=== PATIENT | female | born 1965 | race Caucasian/White ===

== ENCOUNTER 2023-06-28 10:14 | Outpatient (RCR) | payer OTHER, BC, SELFPAY | END 2023-06-28 23:59 | disposition home or self-care (01) | LOC: RPT 10:14 | PROVIDERS: ATTENDING PHYSICIAN Orthopaedic Surgery; FAMILY PHYSICIAN Family Medicine | DX: S76.011D Strain of muscle, fascia and tendon of right hip, subsequent encounter (principal); Z73.6 Limitation of activities due to disability; M25.551 Pain in right hip; R26.89 Other abnormalities of gait and mobility | CPT/HCPCS: 97010; 97110; 97140; 97163 ==

== ENCOUNTER → 2023-07-11 17:53 | Outpatient (REF) | payer BC, SELFPAY | LOC: WDC 17:53 | PROVIDERS: ATTENDING PHYSICIAN Obstetrics & Gynecology; FAMILY PHYSICIAN Family Medicine | DX: Z12.31 Encounter for screening mammogram for malignant neoplasm of breast (principal) | CPT/HCPCS: 77063; 77067 ==

== ENCOUNTER 2023-07-28 11:17 | Outpatient (RCR) | payer OTHER, BC, SELFPAY | END 2023-07-28 23:59 | disposition home or self-care (01) | LOC: RPT 11:17 | PROVIDERS: ATTENDING PHYSICIAN Orthopaedic Surgery; FAMILY PHYSICIAN Family Medicine | DX: S76.011D Strain of muscle, fascia and tendon of right hip, subsequent encounter (principal); Z73.6 Limitation of activities due to disability; M25.551 Pain in right hip; R26.89 Other abnormalities of gait and mobility; X58.XXXD Exposure to other specified factors, subsequent encounter | CPT/HCPCS: 97010; 97110; 97112; 97140; 97530 ==

== ENCOUNTER 2023-08-11 10:19 | Outpatient (RCR) | payer OTHER, BC, SELFPAY | END 2023-08-11 23:59 | disposition home or self-care (01) | LOC: RPT 10:19 | PROVIDERS: ATTENDING PHYSICIAN Orthopaedic Surgery; FAMILY PHYSICIAN Family Medicine | DX: S76.011D Strain of muscle, fascia and tendon of right hip, subsequent encounter (principal); X58.XXXD Exposure to other specified factors, subsequent encounter; Z73.6 Limitation of activities due to disability; M25.551 Pain in right hip; R26.89 Other abnormalities of gait and mobility | CPT/HCPCS: 97010; 97110; 97140; 97530 ==

== ENCOUNTER 2023-09-14 07:42 | Emergency (ER) | payer BC, SELFPAY ==
[2023-09-14 07:45] VITALS: BP 116/73
[2023-09-14 08:05] VITALS: BMI 22.0
--- NOTE | 2023-09-14 08:41 | ED.GENMED ---
History of Present Illness
General
Chief Complaint: Urinary Symptoms
Source: patient
Exam Limitations: none
Time Seen by Provider: 09/14/23 07:56
Travel History
Have you had any contact with someone who has COVID-19?: No
Do you have any symptoms of coronavirus? Fever > 100 degrees, chills, cough, shortness of breath, sore throat, loss of taste or smell, muscle aches, or headache?: No
History of Present Illness
History of Present Illness:
57-year-old female started 2 days ago with sudden onset of nausea followed by dysuria and hematuria. Passing some clots. Some chills today. Symptoms are mild to moderate in nature no fever documented at home
Past History
Past History
ED Past Medical History: Hypothyroidism
ED Past Surgical History: and Orthopedic
Social History
Tobacco: Non-smoker
Alcohol: None
Drug: None
Personal:
Living: with family
Review of Systems
Review of Systems
All Other Systems: Not applicable
Constitutional: Reports chills; Denies fever
Respiratory: Reports no symptoms
ABD/GI: Denies abdominal pain
: Denies flank pain
Phy Exam
Physical Exam
Physical Exam:
GENERAL: Alert and oriented in no apparent distress
EYE: Orbits normal.
NECK: Supple
CARDIAC: Regular rate and rhythm without any obvious murmurs.
LUNGS: Clear breath sounds,normal
ABDOMEN: Soft, without focal tenderness or distention. No CVA tenderness
NEUROLOGICAL: Alert and oriented , grossly non-focal
SKIN: Warm and dry, no rash or lesion, no discoloration, skin intact.
MUSCULOSKELETAL: No edema,no deformity.Good color
PSYCH: Normal and appropriate interaction.
Course
Orders/Labs/Results
Orders:
Orders
09/14/23 08:25
IV Insert/Care/Rem.- Treatment PRN
0.9% Sodium Chloride 1000 ml [Nss] 1,000 ml IV BOLUS
09/14/23 08:26
CT Abd/pel Without Iv Or Oral Urgent
Comment:
Reason For Exam: Hematuria/chills
09/14/23 08:40
Basic Metabolic Panel Urgent
Complete Blood Count/With Diff Urgent
Urinalysis Reflex To Culture Urgent
Date Specimen was Collected: 09/14/23
Time Specimen was Collected: 08:30
Urine Microscopic Reflex Cult Urgent
Urine Culture Urgent
TEVIN Source: U
Specimen Description:
Date Specimen was Collected: 09/14/23
Time Specimen was Collected: 08:30
09/14/23 09:39
CefTRIAXone [Rocephin] 1,000 mg IV NOW STA
09/14/23 10:11
Sterile Water [Sterile Water For Injection] 10 ml .ROUTE .[facility]
Abnormal Lab Results
09/14/23
08:40
MCH 32.0 H pg
(27.0-31.0)
MPV 11.0 H fL
(7.4-10.4)
Absolute Neuts (auto) 8.4 H 10^3/uL
(1.4-6.5)
Neutrophils % 79.9 H %
(42.2-75.2)
Lymphocytes % 12.4 L %
(20.5-51.1)
Glucose 107 H mg/dl
(70-99)
Urine Ketones 1+ A
(Negative)
Ur Occult Blood Reflex 4+ A
(Negative)
Urine Nitrite (Reflex) Positive A
(Negative)
Urine Bilirubin 1+ A
(Negative)
Leukocyte Esterase Rfl 2+ A
(Negative)
Urine RBC >100 A /HPF
(0-2)
Urine WBC (Reflex) >100 A /HPF
(0-5)
Urine Bacteria (Reflex) Many A
(Negative)
Urine Albumin (Reflex) 2+ A
(Neg - Trace)
09/14/23 08:40
09/14/23 08:40
Vital Signs
Initial and Last Documented VS:
Initial Vital Signs
Temp Pulse Resp BP Pulse Ox
97.5 F 88 18 116/73 98
09/14/23 07:45 09/14/23 07:45 09/14/23 07:45 09/14/23 07:45 09/14/23 07:45
Last Documented Vital Signs
Temp Pulse Resp BP Pulse Ox
97.9 F 94 16 103/55 98
09/14/23 11:19 09/14/23 11:19 09/14/23 11:19 09/14/23 11:19 09/14/23 11:19
MDM/Problems Addressed
Differential Diagnosis Includes:
Differential would include hemorrhagic cystitis, pyelonephritis, kidney stone or obstructing stone with secondary pyelonephritis. Workup in progress
*Radiology
Radiology exam reviewed: radiology read reviewed (No acute findings. No hydronephrosis. No obstructing kidney stone)
*Pulse Oximetry
Patient hypoxic: no
*Critical Care Note
Total Time (30-74mins, 75-104mins- exclusive of procedures): Not Applicable
Update Note
Update Note:
Patient remains clinically stable and nontoxic. No sign of obstructing kidney stone. Hemorrhagic cystitis with possible early pyelonephritis. Will start with Rocephin changed to Omnicef and follow-up.
ED Attending Note
-
Portions of this chart may have been created with voice recognition software.� Occasional wrong word or��sound alike� substitutions may have occurred due to the inherent limitations of voice recognition software.
Discharge Plan
Departure
Patient Disposition: Home (Routine Discharge)
Date of Disposition: 09/14/23
Time of Disposition: 09:41
Patient with high blood pressure during this ER visit?: No
Discharge Problem:
Hemorrhagic cystitis, Possible mild pyelonephritis
Instructions: Urinary Tract Infection, Adult (DC), Blood in the Urine (Hematuria), Adult (DC)
Prescriptions:
New
cefdinir 300 mg capsule
300 mg PO BID 7 Days Qty: 14 0RF
No Action
atorvastatin 10 mg Tablet
10 mg PO DAILY
levothyroxine 75 mcg Tablet
75 mcg PO DAILY
lorazepam 0.5 mg Tablet
0.5 mg PO HS PRN (Reason: sleep)
Patient Comments:
09/14/2023, [facility] records from 06/20/2023.
escitalopram oxalate 20 mg Tablet
20 mg PO DAILY
Referrals:
Michell Pickens MD [Family Provider] -
Cecil Buckley MD [Active] - Next open appointment
Activity Restrictions/Additional Instructions:
Your prescription was sent to your pharmacy
Start antibiotics tomorrow morning
Stay well-hydrated
Follow-up closely with your primary physician and I do recommend urology follow-up
Return immediately with concerning symptoms including high fever shaking chills recurrent vomiting etc.
Interventions
Interventions:
*Risk Screen - Suicide Last Done: 09/14/23 08:05
*General Assessment Last Done: 09/14/23 08:05
*Neglect/Abuse Screening Last Done: 09/14/23 08:05
ED- Fall Risk Assessment Last Done: 09/14/23 11:19
*ED COVID-19 Vaccine History Last Done: 09/14/23 07:45
*Nursing Disposition Last Done: 09/14/23 11:19
ED-Female Genitourinary Assessment Last Done: 09/14/23 08:18
Discharge Date and Time
Discharge Date/Time: 09/14/23 11:22
Print Language: SLOVAK
[2023-09-14] MEDS: NSS 1000 IV (08:44)
[2023-09-14 08:50] LABS: % Basophils 0.5 % (0-2); % Eosinophils 1.8 % (0-6); % Immature Granulocytes 0.3 % (0-0.5); % Lymphocytes 12.4 % (20.5-51.1); % Monocytes 5.1 % (1.7-9.3); % Neutrophils 79.9 % (42.2-75.2); Absolute Basophils 0.1 10^3/uL (0-0.2); Absolute Eosinophils 0.2 10^3/uL (0-0.7); Absolute Lymphocytes 1.3 10^3/uL (1.2-3.4); Absolute Monocytes 0.5 10^3/uL (0.1-0.6); Absolute Neutrophils 8.4 10^3/uL (1.4-6.5); Hematocrit 41.7 % (37.0-47.0); Hemoglobin 14.1 g/dL (12.0-16.0); Mean Corp Hgb Conc. 33.8 g/dL (33.0-37.0); Mean Corpuscular Volume 94.6 fL (81.0-99.0); Nucleated Red Blood Cells % 0 %; Platelet Count 255 10^3/uL (130-400); Red Blood Cell Count 4.41 10^6/uL (4.20-5.40); Red Cell Dist. Width 12.9 % (11.5-14.5); White Blood Cell Count 10.5 10^3/uL (4.8-10.8)
[2023-09-14 08:51] LABS: Urine Albumin 2+ (Neg - Trace); Urine Bilirubin 1+ (Negative); Urine Character Very Cloudy (Clear); Urine Color Brown; Urine Glucose Negative (Negative); Urine Ketone 1+ (Negative); Urine Leukocyte 2+ (Negative); Urine Nitrite Positive (Negative); Urine Occult Blood 4+ (Negative); Urine Urobilinogen Negative (Neg - 1+)
[2023-09-14 09:03] LABS: Blood Urea Nitrogen 14 mg/dl (7-17); Calcium 10.1 mg/dl (8.4-10.2); Carbon Dioxide 27 mmol/L (22-30); Chloride 106 mmol/L (98-107); Estimated Creatinine Clearance 77 ml/min; Glucose 107 mg/dl (70-99); Potassium 4.2 mmol/L (3.5-5.1); Sodium 138 mmol/L (135-145); eGFR > 60.00
[2023-09-14 09:58] LABS: Urine Mucus Few
[2023-09-14 10:00] LABS: Urine Bacteria Many (Negative); Urine Red Blood Cell >100 /HPF (0-2); Urine White Cell >100 /HPF (0-5)
[2023-09-14] MEDS: ROCEPHIN 1000 MG IV (10:17)
[2023-09-14 11:19] VITALS: BP 103/55
== END 2023-09-14 11:22 | disposition home or self-care (01) ==
LOC: EMR 07:42
PROVIDERS: EMERGENCY PHYSICIAN Emergency Medicine; FAMILY PHYSICIAN Family Medicine
DX: N30.91 Cystitis, unspecified with hematuria (principal); E03.9 Hypothyroidism, unspecified
CPT/HCPCS: 99284; 96374; 96361; 74176; 80048; 81003; 81015; 85025; 87086